=== PATIENT | male | born 1980 | race Caucasian/White ===

== ENCOUNTER 2016-12-03 21:42 | Observation (INO) | payer OTHER ==
[2016-12-03] MEDS ORDERED: ONDANSETRON 4 MG/2 ML VIAL ONE (22:09)
--- NOTE | 2016-12-03 22:37 | PDOC ---
ED Treatment Course - LABORATORY CBC & Chemistry Diagram: 12/04/16 10:00 12/04/16 10:00 Medical Decision Making - Medical Decision Making 12/03/16 22:36 Pt seen by the Advanced Practice Provider under my direct supervision Ancillary studies reviewed I agree with plan as outlined by the Advanced Practice Provider MELINDA Ogden ECG: NSR nonspecific intraventricular block, TWI in the lateral and high lateral leads. no std/oksana *DC/Admit/Observation/Transfer Diagnosis at time of Disposition: Chest pain of uncertain etiology - Discharge Dispostion Disposition: HOME Condition at time of disposition: Improved - Prescriptions
[2016-12-03] MEDS ORDERED: SODIUM CHLORIDE 1,000 ML IV STA (22:44)
[2016-12-03] MEDS ORDERED: METOCLOPRAMIDE HCL INJECTION 10 MG/2 ML VIAL IVPB ONE (22:44)
[2016-12-03] MEDS ORDERED: ONDANSETRON 4 MG/2 ML VIAL IVPB ONE (22:44)
[2016-12-03 22:47] VITALS: BMI 36.5
[2016-12-03] MEDS ORDERED: ASPIRIN 81 MG CHEWABLE TABLETS PO ONE (23:05)
[2016-12-03] MEDS ORDERED: ASPIRIN 325 MG TABLET ONE (23:16)
[2016-12-03 23:21] LABS: BASOPHIL 0.3 % (0-2.0); EOSINOPHIL 0.3 % (0-4.5); MCH 30.7 pg (25.7-33.7); MCHC 33.9 g/dl (32.0-35.9); MEAN CELL VOLUME 90.6 fl (80-96); MEAN PLT VOLUME 8.5 fl (7.5-11.1); NEUTROPHILS 79.3 % (42.8-82.8); PLATELET COUNT 231 K/MM3 (134-434); RDW 13.9 % (11.9-15.9)
[2016-12-03 23:32] LABS: INR 1.08 (0.82-1.09); PROTHROMBIN TIME (PATIENT) 11.9 SEC (9.98-11.88)
[2016-12-03 23:34] LABS: ACTIVATED PTT 28.9 SECONDS (26.9-34.4)
--- NOTE | 2016-12-03 23:40 | PDOC ---
History of Present Illness - General Chief Complaint: Chest Pain Stated Complaint: CHEST PAIN Time Seen by Provider: 12/03/16 22:18 History Source: Patient, Significant Other Exam Limitations: No Limitations - History of Present Illness Initial Comments: 12/03/16 23:35 36yo Male patient w/ PmHx: HTN presents to ED via EMS c/o chest pain, dizziness , vomiting. Patient states while at work today, he began feeling dizzy, "pains in chest." Patient states he went to sit down in his work truck and could not move. 911 called. Enroute to hospital patient b/p 200/129, was given Nitro x 4 with relief. Patient also received Zofran 8mg IV for vomiting. In speaking with primary bedside nurse; the nurse states patient reported to him that he had been experiencing chest pains x 1 week. Patient significant other states that Marc Francois is his PCP, but he has never seen him. Patient denies any other complaints at this time. Presenting Symptoms: Chest Pain, Dizziness, Nausea, Vomiting Timing/Duration: reports: getting worse Severity/Quality: reports: moderate, pressure Location: reports: substernal Chest Pain Radiation: reports: no radiation Activities at Onset: reports: no specific activity Prior Chest Pain/Cardiac Workup: reports: No prior chest pain, No prior cardiac workup Past History - Travel Traveled outside of the country in the last 30 days: No Close contact w/someone who was outside of country & ill: No - Past Medical History Allergies/Adverse Reactions: Allergies Allergy/AdvReac Type Severity Reaction Status Date / Time No Known Allergies Allergy Verified 12/03/16 23:11 Home Medications: Ambulatory Orders NK [No Known Home Medication] 12/03/16 - Psycho/Social/Smoking Cessation Hx Suicidal Ideation: No Smoking History: Current every day smoker Have you smoked in the past 12 months: Yes Number of Cigarettes Smoked Daily: 20 Information on smoking cessation initiated: Yes Hx Alcohol Use: No Drug/Substance Use Hx: No Cardiac Specific PMH - Complaint Specific PMHX Abdominal Aortic Aneurysm: No Angina: No Cardiac Arrhythmia: No Cardiac Stent: No GERD: No Myocardial Infarction: No Pacemaker: No Pulmonary Embolus: No Valvular Heart Disease: No Peripheral Vascular Disease: No Review of Systems - Review of Systems Able to Perform ROS?: Yes Is the patient limited [place]ar[place]uan proficient: No Constitutional: No: Chills, Fever Respiratory: No: Cough, Orthopnea, Shortness of Breath, Stridor, Wheezing Cardiac (ROS): Yes: Chest Pain, Lightheadedness. No: Edema, Irregular Heart Rate, Palpitations, Syncope, Chest Tightness ABD/GI: Yes: Nausea, Vomiting. No: Constipated, Diarrhea, Poor Appetite, Poor Fluid Intake : No: Dysuria, Flank Pain, Hematuria Musculoskeletal: No: Back Pain Integumentary: No: Bruising, Rash, Sweating Neurological: Yes: Dizziness. No: Headache, Seizure, Tingling, Tremors, Weakness All Other Systems: Reviewed and Negative *Physical Exam - Vital Signs Last Vital Signs Temp Pulse Resp BP Pulse Ox 987.2 F H 55 L 22 169/70 97 12/03/16 22:39 12/03/16 22:39 12/03/16 22:39 12/03/16 22:39 12/03/16 22:39 - Physical Exam General Appearance: Yes: Nourished, Appropriately Dressed, Mild Distress. No: Apparent Distress, Moderate Distress, Severe Distress Neck: positive: Trachea midline, Normal Thyroid, Supple. negative: Stridor, Lymphadenopathy (R), Lymphadenopathy (L) Respiratory/Chest: positive: Lungs Clear, Normal Breath Sounds. negative: Respiratory Distress, Accessory Muscle Use, Labored Respiration, Rapid RR Cardiovascular: positive: Regular Rhythm, Bradycardia Gastrointestinal/Abdominal: positive: Normal Bowel Sounds, Flat. negative: Distended, Guarding, Rebound, Tenderness Musculoskeletal: positive: Normal Inspection. negative: CVA Tenderness Extremity: positive: Normal Capillary Refill, Normal Inspection, Normal Range of Motion. 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 NML intact, Fully Oriented, Alert, Normal Mood/ Affect, Normal Response, Motor Strength 5/5 ED Treatment Course - LABORATORY CBC & Chemistry Diagram: 12/03/16 23:05 12/03/16 23:05 - ADDITIONAL ORDERS Additional order review: Laboratory Results 12/03/16 12/03/16 23:05 23:05 INR 1.08 PTT (Actin FS) 28.9 Sodium 141 Potassium 3.5 Chloride 101 Carbon Dioxide 26 Anion Gap 14 BUN 12 Creatinine 1.0 Creat Clearance w eGFR > 60 Random Glucose 228 H Calcium 8.6 Total Bilirubin 0.3 AST 19 ALT 48 Alkaline Phosphatase 103 Creatine Kinase 295 Creatine Kinase Index 0.9 CK-MB (CK-2) 2.889 Troponin I < 0.02 Total Protein 7.3 Albumin 3.8 12/03/16 23:05 RBC 4.29 MCV 90.6 MCHC 33.9 RDW 13.9 MPV 8.5 Neutrophils % 79.3 Lymphocytes % 14.3 Monocytes % 5.8 Eosinophils % 0.3 Basophils % 0.3 - RADIOLOGY Radiology Studies Ordered: Category Date Time Status CHEST PA & LAT [RAD] Stat Radiology 12/04/16 00:55 Taken ABDOMEN US -LIMITED [US] Stat Ultrasound 12/04/16 00:18 Taken - Medications Given in the ED: ED Medications Discontinued Medications Generic Name Dose Route Start Last Admin Trade Name Sergioq PRN Reason Stop Dose Admin Aspirin 324 mg 12/03/16 23:05 12/03/16 23:22 Asa - PO 12/03/16 23:06 324 mg ONCE ONE Administration Sodium Chloride 1,000 mls @ 1,000 mls/hr 12/03/16 22:44 12/03/16 22:48 Normal Saline - IV 12/03/16 23:43 1,000 mls/hr ASDIR STA Administration Metoclopramide HCl 10 mg 12/03/16 22:44 12/03/16 22:48 Reglan Injection - IVPB 12/03/16 22:45 10 mg ONCE ONE Administration Ondansetron HCl 8 mg 12/03/16 22:44 12/03/16 22:48 Zofran Injection IVPB 12/03/16 22:45 8 mg ONCE ONE Administration *DC/Admit/Observation/Transfer Diagnosis at time of Disposition: Chest pain of uncertain etiology - Discharge Dispostion Condition at time of disposition: Improved Admit: Yes
[2016-12-03 23:43] LABS: ALBUMIN 3.8 g/dl (3.4-5.0); ANION GAP 14 (8-16); BILIRUBIN,TOTAL 0.3 mg/dL (0.2-1.0); CALCIUM 8.6 mg/dL (8.5-10.1); CO2 26 mmol/L (21-32); GLUCOSE,RANDOM 228 mg/dL (74-106); SGOT/AST 19 U/L (15-37); SGPT/ALT 48 U/L (12-78); TOT PROT 7.3 g/dl (6.4-8.2)
[2016-12-03 23:45] LABS: ALK PHOS 103 U/L (45-117); TROPONIN I < 0.02 ng/ml (0.00-0.05)
--- NOTE | 2016-12-04 02:45 | HP ---
CHIEF COMPLAINT: "Dizziness, feeling weak" PCP: Dr. Maurilio Francois (Hasn't visited yet but plans to make an appointment) HISTORY OF PRESENT ILLNESS: Patient is a 36-year-old male presented with the chief complaints of "feeling weak and dizzy". As per the patient, he started having severe headache since 3 days, intermittent, mostly in the occipital area, 10/10 in intensity, intermittent in nature, not relieved by advil, no aggravating or relieving factors. Also developed chest pain x 3 days bilateral, 6/10 in intensity, pricking in nature, no aggravating factors but relived by lying on the side. No h/o sob, palpitation, cough, fever, chills, rigors or sweating. Patient said this morning he went to work but wasn't feeling too well. He had vertigo and 3 episodes of vomiting at work. He then returned home and was unable to even stand, was feeling very weak, dizzy and called 911 immediately. En route patients blood pressure was 200/129mg and received Nitro x 4 after which his chest pain resolved and blood pressure started improving. Patient had several episodes of vomiting in the ED. Patient mentions he never had these symptoms before. Bowel/Bladder habit normal. Sleep/Appetite normal. Patient states he has a h/o Hypertension diagnosed many years ago and took medication but stopped taking it several years ago. Doesn't remember the last time he went to the doctor. Unaware of his blood pressure readings. ER course was notable for: (1) Afebrile, Hypertension BP 169/70mmHg; Leukocytosis 16; RBS-228 (2) EKG- Sinus bradycardia with T wave inversion (3) 1 L of Nacl; Aspirin 324 mg; Metoclopramide; Zofran Recent Travel: None PAST MEDICAL HISTORY: Hypertension PAST SURGICAL HISTORY: None Social History: Smoking: Current smoker; 1 pack/day since 16 years Alcohol: only during weekends; 1-2 bottles Drugs: Denies Family History: Unknown Allergies No Known Allergies Allergy (Verified 12/03/16 23:11) HOME MEDICATIONS: Home Medications Medication Instructions Recorded NK [No Known Home Medication] 12/03/16 REVIEW OF SYSTEMS CONSTITUTIONAL: Present: generalized weakness Absent: fever, chills, diaphoresis, , malaise, loss of appetite, weight change HEENT: Absent: rhinorrhea, nasal congestion, throat pain, throat swelling, difficulty swallowing, mouth swelling, ear pain, eye pain, visual changes CARDIOVASCULAR: Present: Chest pain Absent: syncope, palpitations, irregular heart rate, lightheadedness, peripheral edema RESPIRATORY: Absent: cough, shortness of breath, dyspnea with exertion, orthopnea, wheezing, stridor, hemoptysis GASTROINTESTINAL: Present: nausea, vomiting Absent: abdominal pain, abdominal distension, diarrhea, constipation, melena, hematochezia GENITOURINARY: Absent: dysuria, frequency, urgency, hesitancy, hematuria, flank pain, genital pain MUSCULOSKELETAL: Absent: myalgia, arthralgia, joint swelling, back pain, neck pain SKIN: Absent: rash, itching, pallor HEMATOLOGIC/IMMUNOLOGIC: Absent: easy bleeding, easy bruising, lymphadenopathy, frequent infections ENDOCRINE: Absent: unexplained weight gain, unexplained weight loss, heat intolerance, cold intolerance NEUROLOGIC: Present: vertigo Absent: headache, focal weakness or paresthesias, , unsteady gait, seizure, mental status changes, bladder or bowel incontinence PSYCHIATRIC: Absent: anxiety, depression, suicidal or homicidal ideation, hallucinations. PHYSICAL EXAMINATION GENERAL: Young male, moderately obese; Awake, alert, and fully oriented, very sleepy, in no acute distress. HEAD: Normal with no signs of trauma. EYES: EOM intact, no pallor or icterus. EARS, NOSE, THROAT: Normal NECK:Supple LUNGS: Breath sounds equal, clear to auscultation bilaterally. No wheezes, and no crackles. No accessory muscle use. HEART: Regular rate and rhythm, normal S1 and S2 without murmur, rub or gallop. ABDOMEN: Soft, nontender, not distended, normoactive bowel sounds, no guarding, no rebound, no masses. No hepatomegaly or splenomegaly. MUSCULOSKELETAL: Normal range of motion at all joints. No bony deformities or tenderness. No CVA tenderness. UPPER EXTREMITIES: 2+ pulses, warm, well-perfused. No cyanosis. No clubbing. No peripheral edema. LOWER EXTREMITIES: 2+ pulses, warm, well-perfused. No calf tenderness. No peripheral edema. NEUROLOGICAL: Cranial nerves II-XII intact. Normal speech. Normal gait. PSYCHIATRIC: Cooperative. Good eye contact. Appropriate mood and affect. SKIN: Warm, dry, normal turgor, no rashes or lesions noted, normal capillary refill. ASSESSMENT/PLAN: Patient is a 36-year-old male with significant past medical history of hypertension presented with the chief complaints of "feeling weak and dizzy". # Hypertensive urgency Patient presented with severe headache x 3days, nausea, vomiting (several episodes); vertigo; weakness; tired H/o Hypertension, non compliant with medication (doesn't remember which medication he was on) En route patients blood pressure was 200/129mmHg In the ED, Afebrile, Hypertension BP 169/70mmHg; Leukocytosis 16; RBS-228 EKG- Sinus bradycardia with T wave inversion Troponin x 1 negative In the ED, patient received 1 L of Nacl; Aspirin 324 mg; Metoclopramide; Zofran Placed on observation Added Amlodipine 10mg Daily CT head ordered to r/o hemorrahage Monitor blood pressure Sodium controlled diet Counseling on medication compliance, diet and exercise Eye examination as outpatient # Chest pain-r/o ACS EKG- Sinus bradycardia with T wave inversion Troponin x 1 negative Repeat troponin and EKG in am # Suspected abdominal cause of chest pain Abdominal ultrasound done which was normal. # Vertigo-unknown etiology Likely BPPV Came in with nausea and several episodes of vomiting Zofran PRN # Leukocytosis (16) unknown cause R/O UTI- UA pending CXR-R/o infiltrate pending official report # R/o DM and Hyperlipidemia HbA1c pending Lipid panel ordered for am # FEN Not on IV fluids Electrolytes to be repeated in am Sodium controlled diet # Prophylaxis For DVT- Scds; encourage ambulation, patient place here on observation For GI- Not indicated # Code Status- Full code # Dispo: Placed in tele for observation. Duration of stay likely 1-2 days. Illness, Investigation and Plan of care explained to the patient. He verbalized understanding. Case seen and discussed with Dr. Montoya. Visit type - Emergency Visit Emergency Visit: Yes ED Registration Date: 12/04/16 Care time: The patient presented to the Emergency Department on the above date and was hospitalized for further evaluation of their emergent condition. - New Patient This patient is new to me today: Yes Date on this admission: 12/10/16 - Critical Care Critical Care patient: No
[2016-12-04] MEDS ORDERED: ONDANSETRON 8 MG TABLET (FP) PO PRN (02:47)
--- NOTE | 2016-12-04 06:03 | PN ---
Teaching Attending Note Name of Resident: Vickie Angulo ATTENDING PHYSICIAN STATEMENT I saw and evaluated the patient. I reviewed the resident's note and discussed the case with the resident. I agree with the resident's findings and plan as documented. SUBJECTIVE: 36 year old male presents to ED c/o 3 day history of headache, generalized weakness and dizziness. Prior to arrival developed vomiting and mid sternal chest pain that was relieved by nitro. PMH- HTN OBJECTIVE: Vital Signs Temperature 987.2 F H 12/03/16 22:39 Pulse Rate 79 12/04/16 04:14 Respiratory Rate 18 12/04/16 04:14 Blood Pressure 153/92 12/04/16 04:14 O2 Sat by Pulse Oximetry (%) 98 12/04/16 04:14 HEAD: Normal with no signs of trauma. EYES: EOM intact, no pallor or icterus. EARS, NOSE, THROAT: Normal NECK:Supple LUNGS: Breath sounds equal, clear to auscultation bilaterally. No wheezes, and no crackles. No accessory muscle use. HEART: Regular rate and rhythm, normal S1 and S2 without murmur, rub or gallop. ABDOMEN: Soft, nontender, not distended, normoactive bowel sounds, no guarding, no rebound, no masses. No hepatomegaly or splenomegaly. MUSCULOSKELETAL: Normal range of motion at all joints. No bony deformities or tenderness. No CVA tenderness. UPPER EXTREMITIES: 2+ pulses, warm, well-perfused. No cyanosis. No clubbing. No peripheral edema. LOWER EXTREMITIES: 2+ pulses, warm, well-perfused. No calf tenderness. No peripheral edema. NEUROLOGICAL: Cranial nerves II-XII intact. Normal speech. Normal gait. PSYCHIATRIC: Cooperative. Good eye contact. Appropriate mood and affect. SKIN: Warm, dry, normal turgor, no rashes or lesions noted, normal capillary refill. Abnormal Lab Results 12/03/16 12/03/16 23:05 23:05 WBC 16.0 H Random Glucose 228 H ASSESSMENT AND PLAN: 1. HTN urgency - history of HTN but non compliant. - start amlodipine - monitor BP and adjust med regimen 2. Headache and vertigo / dizziness , now resolved - could be related to uncontrolled BP. - CT brain is ordered , will follow 3 Chest pain , multiple risk factors , r/o ACS - repeat troponins and EKG - needs BP control 4. DVT ppx - SCD, early ambulation
[2016-12-04 10:25] LABS: BASOPHIL 0.6 % (0-2.0); EOSINOPHIL 0.1 % (0-4.5); MCH 30.7 pg (25.7-33.7); MCHC 33.4 g/dl (32.0-35.9); MEAN CELL VOLUME 91.7 fl (80-96); MEAN PLT VOLUME 8.5 fl (7.5-11.1); NEUTROPHILS 80.5 % (42.8-82.8); PLATELET COUNT 246 K/MM3 (134-434); RDW 14.3 % (11.9-15.9); WHITE BLOOD COUNT 15.2 K/mm3 (4.0-10.0)
[2016-12-04] MEDS ORDERED: ACETAMINOPHEN 325 MG TABLET (FP) ONE (10:27)
[2016-12-04 11:01] LABS: ANION GAP 9 (8-16); CO2 28 mmol/L (21-32); GLUCOSE,RANDOM 155 mg/dL (74-106); MAGNESIUM 2.1 mg/dL (1.8-2.4)
[2016-12-04 11:05] LABS: ALK PHOS 116 U/L (45-117); BILIRUBIN,TOTAL 0.5 mg/dL (0.2-1.0); CHOLESTEROL 284 mg/dL (50-200); CREATININE 0.9 mg/dL (0.7-1.3); LDL CHOLESTEROL (ONLY SJRH) 202 mg/dL (5-100); PHOSPHOROUS 3.3 mg/dL (2.5-4.9); SGOT/AST 19 U/L (15-37); SGPT/ALT 53 U/L (12-78); TOT PROT 8.1 g/dl (6.4-8.2); TROPONIN I < 0.02 ng/ml (0.00-0.05)
--- NOTE | 2016-12-04 11:35 | EKG ---
Test Reason : Blood Pressure : / mmHG Vent. Rate : 050 BPM Atrial Rate : 050 BPM P-R Int : 178 ms QRS Dur : 124 ms QT Int : 498 ms P-R-T Axes : 036 054 078 degrees QTc Int : 454 ms SINUS BRADYCARDIA NON-SPECIFIC INTRA-VENTRICULAR CONDUCTION DELAY NONSPECIFIC T WAVE ABNORMALITY ABNORMAL ECG WHEN COMPARED WITH ECG OF 07-MAR-2005 20:34, T WAVE AMPLITUDE HAS DECREASED IN INFERIOR LEADS NONSPECIFIC T WAVE ABNORMALITY NOW EVIDENT IN ANTEROLATERAL LEADS QT HAS LENGTHENED Confirmed by CAROL ALFORD MD ([id number]) on 12/04/2016 11:35:09 AM Referred By: Confirmed By:CAROL ALFORD MD
--- NOTE | 2016-12-04 11:45 | EKG ---
Test Reason : Blood Pressure : / mmHG Vent. Rate : 062 BPM Atrial Rate : 062 BPM P-R Int : 184 ms QRS Dur : 112 ms QT Int : 412 ms P-R-T Axes : 018 022 046 degrees QTc Int : 418 ms NORMAL SINUS RHYTHM NONSPECIFIC T WAVE ABNORMALITY NON-SPECIFIC INTRA-VENTRICULAR CONDUCTION DELAY ABNORMAL ECG WHEN COMPARED WITH ECG OF 03-DEC-2016 22:28, NO SIGNIFICANT CHANGE WAS FOUND Confirmed by CAROL ALFORD MD ([id number]) on 12/04/2016 11:45:05 AM Referred By: ALKA CHEN Confirmed By:CAROL ALFORD MD
[2016-12-04] MEDS: amLODIPine BESYLATE 10 MG TABLET (FP) PO SCH (12:00)
[2016-12-04] MEDS ORDERED: amLODIPine BESYLATE 5 MG TABLET (FP) ONE (12:02)
[2016-12-04] MEDS: LISINOPRIL 20 MG TABLET (FP) PO SCH (14:11)
--- NOTE | 2016-12-04 15:34 | PN ---
Physical Exam: SUBJECTIVE: Patient seen and examined, c/o of headache. Denies chest pain, sob, palpations, dizziness. OBJECTIVE: Vital Signs Period Temp Pulse Resp BP Sys/Warren Pulse Ox Last 24 Hr 98 F-98.5 F 58-82 16-18 153-195/92-117 98-100 GENERAL: The patient is obese awake, alert, and fully oriented, in no acute distress. HEAD: Normal with no signs of trauma. EYES: PERRL, extraocular movements intact, sclera anicteric, conjunctiva clear. No ptosis. ENT: Ears normal, nares patent, oropharynx clear without exudates, moist mucous membranes. NECK: Trachea midline, full range of motion, supple. LUNGS: Breath sounds equal, clear to auscultation bilaterally, no wheezes, no crackles, no accessory muscle use. HEART: Regular rate and rhythm, S1, S2 without murmur, rub or gallop. ABDOMEN: Soft, nontender, nondistended, normoactive bowel sounds, no guarding, no rebound, no hepatosplenomegaly, no masses. EXTREMITIES: 2+ pulses, warm, well-perfused, no edema. NEUROLOGICAL: Cranial nerves II through XII grossly intact. Normal speech, gait not observed. PSYCH: Normal mood, normal affect. SKIN: Warm, dry, normal turgor, no rashes or lesions noted Laboratory Results - last 24 hr 12/04/16 12/04/16 12/04/16 10:00 10:00 10:00 WBC 15.2 H RBC 4.59 Hgb 14.1 Hct 42.1 MCV 91.7 MCHC 33.4 RDW 14.3 Plt Count 246 MPV 8.5 Neutrophils % 80.5 Lymphocytes % 13.0 Monocytes % 5.8 Eosinophils % 0.1 Basophils % 0.6 PTT (Actin FS) 33.2 Sodium 139 Potassium 4.5 D Chloride 102 Carbon Dioxide 28 Anion Gap 9 BUN 12 Creatinine 0.9 Creat Clearance w eGFR > 60 Random Glucose 155 H D Hemoglobin A1c % Calcium 9.0 Phosphorus 3.3 Magnesium 2.1 Total Bilirubin 0.5 D AST 19 ALT 53 Alkaline Phosphatase 116 Creatine Kinase 321 H Troponin I < 0.02 Total Protein 8.1 Albumin 4.0 Triglycerides 138 Cholesterol 284 H Total LDL Cholesterol 202 H HDL Cholesterol 52 12/04/16 10:00 WBC RBC Hgb Hct MCV MCHC RDW Plt Count MPV Neutrophils % Lymphocytes % Monocytes % Eosinophils % Basophils % PTT (Actin FS) Sodium Potassium Chloride Carbon Dioxide Anion Gap BUN Creatinine Creat Clearance w eGFR Random Glucose Hemoglobin A1c % 8.0 H Calcium Phosphorus Magnesium Total Bilirubin AST ALT Alkaline Phosphatase Creatine Kinase Troponin I Total Protein Albumin Triglycerides Cholesterol Total LDL Cholesterol HDL Cholesterol Active Medications Generic Name Dose Route Start Last Admin Trade Name Freq PRN Reason Stop Dose Admin Amlodipine Besylate 10 mg 12/04/16 10:00 12/04/16 12:00 Norvasc - PO 10 mg DAILY TRIPP Administration Lisinopril 20 mg 12/04/16 14:15 12/04/16 14:11 Prinivil PO 20 mg DAILY TRIPP Administration Ondansetron HCl 8 mg 12/04/16 02:47 Zofran - PO Q8H PRN NAUSEA AND/OR VOMITING ASSESSMENT/PLAN: This is a 36 year old male who has not seen a medical doctor in years, presented with feeling of dizziness, BP en route was 200/129; admitted to hospital for hypertensive urgency. #hypertensive urgency -amlodipine 10mg po daily -lisinopril 20mg po daily -CT negative -monitor bp -alcoholic counselor on diet and exercise -Echo: no concentric LVH; LVSF wnl; RV wnl; trace MR; mild TR; borderline aortic root dilatation; no pericardial effusion #chest pain r/o ACS -trop neg x 2; 3rd pending -ecg; NS johnathon; t wave inversion -abdominal US to r/o cause of pain; showing fatty liver #Leukocytosis: unknown etiology -Ua; watch for signs of infection; fever, HR #Newly diagnosed DM: -will start insulin SS -diet counseling -hemoglobin A1C 8 #Hyperlipidemia: -weight loss/diet FEN: Fluids: po Electrolytes wnl Diet diabetic/low na VTE prophylaxis: scd; Visit type - Emergency Visit Emergency Visit: Yes ED Registration Date: 12/04/16 Care time: The patient presented to the Emergency Department on the above date and was hospitalized for further evaluation of their emergent condition. - New Patient This patient is new to me today: Yes Date on this admission: 12/05/16 - Critical Care Critical Care patient: No
[2016-12-04] MEDS: INSULIN SLIDING SCALE (NOVOLOG) 1 VIAL SQ SCH ×2 (16:24→23:18)
[2016-12-04] MEDS ORDERED: ACETAMINOPHEN 325 MG TABLET (FP) PO ONE (19:24)
[2016-12-04] MEDS ORDERED: ACETAMINOPHEN 325 MG TABLET (FP) PO PRN (19:30)
[2016-12-04] MEDS ORDERED: IBUPROFEN 600 MG TABLET (FP) PO ONE (22:59)
[2016-12-05] MEDS: INSULIN SLIDING SCALE (NOVOLOG) 1 VIAL SQ SCH ×2 (06:41→11:35)
[2016-12-05] MEDS: amLODIPine BESYLATE 10 MG TABLET (FP) PO SCH (09:13)
[2016-12-05] MEDS: LISINOPRIL 20 MG TABLET (FP) PO SCH (09:14)
--- NOTE | 2016-12-05 11:35 | PN ---
Teaching Attending Note Name of Resident: Deepali Madrigal ATTENDING PHYSICIAN STATEMENT I saw and evaluated the patient. I reviewed the resident's note and discussed the case with the resident. I agree with the resident's findings and plan as documented. SUBJECTIVE: seen and evaluated at the bedside OBJECTIVE: resting comfortably ASSESSMENT AND PLAN: 36 year old man with HTN admitted for hypertensive urgency HTN -BP better controlled -cont amlodipine 10 -started on lisinopril 20 (also renal protective) -if BP less than 150 after AM meds will discharge home new Onset DM -sugars mildly elevated -Hb A1C elevated to 8 -cont sliding scale during admission -will discharge on metformin 500 BID -counselled at length about complications of DM and lifestyle changes that pt should implement and he is in full agreenment -pt to follow up with PMD as an outpatient
[2016-12-05 12:49] VITALS: BP 142/76; PULSE 54; TEMP 97
--- NOTE | 2016-12-05 12:50 | DS ---
Physical Exam: SUBJECTIVE: Patient seen and examined, still with minor headache, improves with ibuprofen. Denies chest pain, shortness of breath, abdominal pain, diarrhea. OBJECTIVE: Vital Signs Period Temp Pulse Resp BP Sys/Warren Pulse Ox Last 24 Hr 98 F-98.9 F 56-79 16-18 142-195/75-100 98-100 PHYSICAL EXAM GENERAL: The patient is obese awake, alert, and fully oriented, in no acute distress. HEAD: Normal with no signs of trauma. EYES: PERRL, extraocular movements intact, sclera anicteric, conjunctiva clear. ENT: Ears normal, nares patent, oropharynx clear without exudates, moist mucous membranes. NECK: Trachea midline, full range of motion, supple. LUNGS: Breath sounds equal, clear to auscultation bilaterally, no wheezes, no crackles, no accessory muscle use. HEART: Regular rate and rhythm, S1, S2 without murmur, rub or gallop. ABDOMEN: Soft, nontender, nondistended, normoactive bowel sounds, no guarding, no rebound, no hepatosplenomegaly, no masses. EXTREMITIES: 2+ pulses, warm, well-perfused, no edema. NEUROLOGICAL: Cranial nerves II through XII grossly intact. Normal speech, gait not observed. PSYCH: Normal mood, normal affect. SKIN: Warm, dry, normal turgor, no rashes or lesions noted. LABS CBC, BMP 12/04/16 10:00 12/04/16 10:00 Laboratory Results - last 24 hr 12/04/16 12/04/16 12/04/16 10:00 15:36 21:43 POC Glucometer 143 204 Hemoglobin A1c % 8.0 H 12/05/16 11:33 POC Glucometer 124 Hemoglobin A1c % Echo: no concentric LVH; LVSF wnl; RV wnl; trace MR; mild TR; borderline aortic root dilatation; no pericardial effusion HOSPITAL COURSE: Date of Admission:12/04/16 Date of Discharge: 12/05/16 This is a 36 year old male who has not seen a medical doctor in years, presented with feeling of dizziness, BP en route to hospital was 200/129; admitted for hypertensive urgency. Blood pressure controlled with lisinopril 30mg daily and amlodipine 10mg daily. Head CT negative for acute pathology. Cardiac work up negative for acute coronary syndrome (troponin negative x3, ecg no st elevation/depression). Abdominal ultrasound was ordered to rule out other causes of chest pain, showed fatty liver. Echo results above. Labs indicate hyperglycemia, hemoglobin A1C 8. Patient started on metformin 500mg bid. Hypercholesterol, patient started on lipitor 20mg HS. Counseled on diet and weight loss. Follow up with primary with in one week. Minutes to complete discharge: 35 Discharge Summary Reason For Visit: CHEST PAIN OF UNCERTAIN ETIOLOGY Condition: Improved - Instructions Diet, Activity, Other Instructions: Mr. Martines, you have been diagnosed with high blood pressure, diabetes and high cholesterol. all of these conditions can improve with diet and weight loss. Please be advised to take the new medications prescribed to you. We would like you to follow up with your primary care doctor with in one week. If you experience any worsening of symptoms, chest pain shortness of breath, please return to the emergency room. Referrals: Maurilio Francois MD [Primary Care Provider] - Disposition: HOME - Home Medications Comprehensive Discharge Medication List: Ambulatory Orders Amlodipine Besylate [Norvasc -] 10 mg PO DAILY #30 tablet 12/05/16 Atorvastatin Ca [Lipitor] 20 mg NR HS #30 tablet 12/05/16 Lisinopril [Prinivil] 30 mg PO DAILY #30 tablet 12/05/16 Metformin HCl [Glucophage -] 500 mg PO BID #60 tablet 12/05/16 This patient is new to me today: No Emergency Visit: Yes ED Registration Date: 12/04/16 Care time: The patient presented to the Emergency Department on the above date and was hospitalized for further evaluation of their emergent condition. Critical Care patient: No - Discharge Referral Referred to [facility] No
[2016-12-05] MEDS ORDERED: IBUPROFEN 600 MG TABLET (FP) PO ONE (13:15)
[2016-12-05] MEDS ORDERED: LISINOPRIL 20 MG TABLET (FP) PO SCH (13:55)
== END 2016-12-05 14:26 | disposition home or self-care (01) ==
LOC: JER 21:42 → JERBED 12-04 01:41 → UNDOADMOB 12-04 02:07 → J4W 12-04 13:26
PROVIDERS: ADMIT Internal Medicine; ATTEND Internal Medicine
PROC: 3E033GC Introduction of Other Therapeutic Substance into Peripheral Vein, Percutaneous Approach (ICD-10-PCS; principal; 2016-12-04)
PROC: 3E013VG Introduction of Insulin into Subcutaneous Tissue, Percutaneous Approach (ICD-10-PCS; 2016-12-04)
DX: I16.0 Hypertensive urgency (principal); R07.89 Other chest pain; D72.829 Elevated white blood cell count, unspecified; E11.9 Type 2 diabetes mellitus without complications; E78.5 Hyperlipidemia, unspecified; I10 Essential (primary) hypertension; F17.210 Nicotine dependence, cigarettes, uncomplicated; Z91.14 Patient's other noncompliance with medication regimen
CPT/HCPCS: 36415; 70450-TC; 71020-TC; 76705-TC; 80053; 80061; 82550; 82553; 83036; 83721; 83735; 84100; 84484; 85025; 85610; 85730; 93005; 93010; 93306-TC; 99285-25; G0378